=== PATIENT | male | born 1965 | race African-American/Black ===

== ENCOUNTER 2017-04-07 16:16 | Emergency (ER) | payer MEDICAID ==
[~2017-04-07] VITALS: Ht 177.8 cm; Wt 105.0 kg
[~2017-04-07 16:16] MED LIST: DIGO125T82 PO; DILT120C61 PO; HYDR12.54 PO; LISI-650 PO; SPIR25TA PO; WARF10TA21 PO; WARF5TAB76 PO
[2017-04-07 16:30] VITALS: BP 125/85
== END 2017-04-07 23:00 | disposition left against medical advice (07) ==
LOC: ER 16:16
DX: R51 Headache (principal); Z53.21 Procedure and treatment not carried out due to patient leaving prior to being seen by health care provider